=== PATIENT | male | born 1950 | race African-American/Black ===

== ENCOUNTER 2017-02-05 10:06 | Inpatient (IN) ==
[2017-02-05] MEDS ORDERED: SODIUM CHLORIDE 0.9% 1,000 ML IV STA (10:39)
--- NOTE | 2017-02-05 10:42 | EKG Report ---
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
--- NOTE | 2017-02-05 11:08 | CT Report ---
History: Syncope Date: 02/05/2017 Study: CT head without contrast Comparison exam: January 29, [address] sections were obtained through the head without IV contrast. This CT exam was performed using one or more the following dose reduction techniques: Automated exposure control, adjustment of the MA and/or KV according to patient size, or use of iterative reconstruction technique. The ventricles are midline in position without evidence of hydrocephalus. There is no mass or parenchymal hemorrhage. There is no gross CT evidence of acute cortical stroke. There is some ill-defined low density in the periventricular white matter without mass effect compatible with changes of small vessel disease. There is no extra-axial hematoma. There is near complete opacification of the right sphenoid sinus, though this is improved. There is improved aeration of the left sphenoid sinus compared to the previous study. There is no acute abnormality of the bony calvarium. Impression: No acute intracranial process. Persistent but mildly improved sphenoid sinusitis PROCEDURE INTERPRETED AT [facility] DEPARTMENT OF RADIOLOGY Final Report Signed by: Dr. Pamela Ram
--- NOTE | 2017-02-05 11:10 | XRay Report ---
History: Shortness of breath Date: 02/05/2017 Study: Chest x-ray AP portable Comparison exam: January 29, 2017 chest x-ray The cardiac silhouette is upper normal in size. There is no mediastinal mass. The pulmonary vasculature is not engorged. The lungs and pleural spaces are clear. There is minimal thoracic spondylosis. Impression: No acute cardiopulmonary process. No significant interval change PROCEDURE INTERPRETED AT [facility] DEPARTMENT OF RADIOLOGY Final Report Signed by: Dr. Pamela Ram
--- NOTE | 2017-02-05 11:12 | CT Report ---
Exam: CT chest with contrast, PE study Date: 02/05/2017 Comparison: 12/17/2015 Reason: Syncope Technique: Axial images of the chest were obtained after administration of 80 cc of IV Omnipaque 350 intravenous contrast. Coronal reformatted images were also acquired. The study was performed per pulmonary embolism protocol. Total DLP: 399.10 Findings: There is no evidence of pulmonary embolism through the segmental pulmonary arteries.The heart is minimally enlarged with coronary artery calcifications/stents. Limited contrast in the aorta. No chest lymphadenopathy is identified. Degenerative changes are noted. Chronic scarring in the lungs with decreased diffuse parenchymal findings when compared to previous exam. Minimal bullous emphysema. Impression: No evidence of pulmonary embolism. Minimal bullous emphysema with chronic scarring. Coronary artery calcifications/stents. This CT exam was performed using one or more the following dose reduction techniques: Automated exposure control, adjustment of the MA and/or KV according to patient size, or use of iterative reconstruction technique. PROCEDURE INTERPRETED AT [facility] DEPARTMENT OF RADIOLOGY Final Report Signed by: Dr. Janet Landa
[2017-02-05 11:33] LABS: Basophils % 0.2 % (0.0-0.8); Eosinophils # 0.1 10*3/uL (0.0-0.87); Eosinophils % 0.9 % (0.00-10.9); Hematocrit 34.3 VOL% (42.0-52.0); Hemoglobin 11.6 GM/DL (14.0-18.0); Immature Granulocytes % 0.3 %; Immature Granulocytes Absolute 0.03 #; Lymphocytes # 1.5 10*3/uL (1.4-4.0); Lymphocytes % 15.6 % (21.2-54.2); Mean Corpuscular HGB Conc 33.8 GM/DL (32-36); Mean Corpuscular Hemoglobin 32 PG (27-34); Mean Corpuscular Volume 93.2 FL (87-102); Mean Platelet Volume 11.2 FL (9.6-12.0); Monocytes # 0.8 10*3/uL (0.11-0.8); Monocytes % 8.7 % (1.7-12.7); Neutrophils # 7.1 10*3/uL (1.4-7.4); Neutrophils % 74.3 % (38.7-73.9); Platelet Count 125 T/CUMM (130-400); Red Blood Count 3.68 MC/CUMM (3.8-5.5); Red Cell Distribution Width 13.2 % (9.3-17.3); White Blood Count 9.6 T/CUMM (4-12)
[2017-02-05 11:42] LABS: Apearance,Urine CLEAR (Clear); Bilirubin,Urine Negative (Negative); Blood, Urine Negative (Negative); Glucose,Urine (UA) Negative (Negative); Ketones,Urine Negative (Negative); Mucus,Urine Few /LPF (Occasional); Nitrite,Urine Negative (Negative); Protein,Urine Negative; RBC,Urine 1 /HPF (0-4); Squamous Epithelial Cell,Urine Occasional /HPF (0-10); Urine Color Yellow (Yellow); Urine Specific Gravity 1.042 (1.001-1.035); Urine Urobilinogen < 2.0 EU/DL (0.2-1.0); WBC,Urine <1 /HPF (0-6)
[2017-02-05 11:43] LABS: PT Patient Result 10.7 SECS
[2017-02-05 11:46] LABS: Barbiturates Screen,Urine Negative (Negative); Benzodiazepines Screen,Urine Negative (Negative); Cannabinoid Screen,Urine Negative (Negative); Opiate Screen,Urine Positive (Negative); Phencyclidine Screen,Urine Negative (Negative)
[2017-02-05 12:14] LABS: Alanine Aminotransferase 17 U/L (16-61); Albumin 3.1 G/DL (3.4-5.0); Alkaline Phosphatase 76 U/L (45-117); Aspartate Amino Transferase 18 U/L (0-37); Bilirubin,Total < 0.39 MG/DL (0.2-1.0); Blood Urea Nitrogen 22 MG/DL (7-18); Calcium 8.3 MG/DL (8.5-10.1); Glucose 88 MG/DL (74-106); Magnesium 2.4 MG/DL (1.8-2.4); Potassium 3.8 MMOL/L (3.5-5.1); Sodium 136 MMOL/L (136-145); Total Protein 6.7 G/DL (6.4-8.3); Troponin I Only 0.093 NG/ML (0.00-0.045)
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
[2017-02-05] MEDS ORDERED: guaiFENesin/DM ER 600-30 MG TABLET PO PRN (13:39)
[2017-02-05] MEDS ORDERED: ACETAMINOPHEN 325 MG TABLET PO PRN (13:39)
[2017-02-05] MEDS ORDERED: DOCUSATE SODIUM 100 MG CAPSULE PO PRN (13:39)
[2017-02-05] MEDS ORDERED: diphenhydrAMINE CAP 25 MG CAPSULE PO PRN (13:39)
[2017-02-05] MEDS ORDERED: ONDANSETRON 4 MG/2 ML VIAL IV PRN (13:39)
[2017-02-05] MEDS ORDERED: SIMETHICONE CHEW 80 MG TABLET PO PRN (13:43)
[2017-02-05] MEDS ORDERED: predniSONE 5 MG TABLET PO SCH (13:45)
[2017-02-05] MEDS ORDERED: DEXTROSE 50% 25 GM/50 ML VIAL IV PRN (14:45)
[2017-02-05] MEDS ORDERED: GLUCAGON 1 MG VIAL IM PRN (14:45)
--- NOTE | 2017-02-05 14:57 | EKG Report ---
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
[2017-02-05] MEDS ORDERED: predniSONE 10 MG TABLET ONE (17:49)
[2017-02-05] MEDS ORDERED: traMADol 50 MG TABLET ONE (17:50)
[2017-02-05] MEDS ORDERED: MAGNESIUM CHLORIDE 64 MG TABLET PO ONE (17:50)
[2017-02-05] MEDS ORDERED: AMOXICILLIN/CLAV 875 MG TABLET ONE (17:50)
[2017-02-05] MEDS ORDERED: LORATADINE 10 MG TABLET ONE (17:50)
[2017-02-05] MEDS ORDERED: PANTOPRAZOLE 40 MG TABLET PO ONE (17:51)
[2017-02-05] MEDS ORDERED: CLOPIDOGREL 75 MG TABLET ONE (17:51)
[2017-02-05] MEDS ORDERED: ASPIRIN 325 MG TABLET ONE (17:51)
[2017-02-05] MEDS: AMOXICILLIN/CLAV 875 MG TABLET PO SCH (18:03)
[2017-02-05] MEDS: LORATADINE 10 MG TABLET PO SCH (18:03)
[2017-02-05] MEDS: ASPIRIN EC 325 MG TABLET PO SCH (18:03)
[2017-02-05] MEDS: PANTOPRAZOLE 40 MG TABLET PO SCH (18:04)
[2017-02-05] MEDS: traMADol 50 MG TABLET PO SCH ×2 (18:04→20:33)
[2017-02-05] MEDS: MAGNESIUM CHLORIDE 64 MG TABLET PO SCH (18:04)
[2017-02-05] MEDS: CLOPIDOGREL 75 MG TABLET PO SCH (18:04)
[2017-02-05] MEDS ORDERED: predniSONE 5 MG TABLET PO ONE (18:30)
[2017-02-05] MEDS: SERTRALINE 50 MG TABLET PO SCH (19:46)
[2017-02-05] MEDS: DULoxetine 30 MG CAPSULE PO SCH (19:46)
[2017-02-05] MEDS: INSULIN REGULAR 100 UNIT/ML SUBCUT SCH (19:46)
[2017-02-05] MEDS: ROSUVASTATIN 10 MG TABLET PO SCH (20:33)
[2017-02-05] MEDS ORDERED: traZODone 50 MG TABLET PO SCH (21:00)
[2017-02-06] MEDS: AMOXICILLIN/CLAV 875 MG TABLET PO SCH ×3 (05:47→17:20)
[2017-02-06] MEDS: INSULIN REGULAR 100 UNIT/ML SUBCUT SCH ×2 (08:21→17:21)
--- NOTE | 2017-02-06 08:53 | EKG Report ---
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
[2017-02-06] MEDS ORDERED: POTASSIUM CHLORIDE RIDER 10 MEQ in PREMIX 1 EACH IV PRN ×2 (15:27→16:08)
[2017-02-06] MEDS ORDERED: MAGNESIUM SULF RIDER 2 GM in PREMIX 1 EACH IV PRN ×2 (15:27→16:08)
[2017-02-06] MEDS: MAGNESIUM CHLORIDE 64 MG TABLET PO SCH (15:33)
[2017-02-06] MEDS: CLOPIDOGREL 75 MG TABLET PO SCH (15:33)
[2017-02-06] MEDS: SERTRALINE 50 MG TABLET PO SCH (15:34)
[2017-02-06] MEDS: LORATADINE 10 MG TABLET PO SCH (15:34)
[2017-02-06] MEDS: PANTOPRAZOLE 40 MG TABLET PO SCH (15:34)
[2017-02-06] MEDS: ASPIRIN EC 325 MG TABLET PO SCH (15:34)
[2017-02-06] MEDS: DULoxetine 30 MG CAPSULE PO SCH (15:35)
[2017-02-06] MEDS: traMADol 50 MG TABLET PO SCH ×3 (15:35→21:47)
[2017-02-06] MEDS: SODIUM CHLORIDE 0.45% 1,000 ML IV SCH (15:36)
[2017-02-06] MEDS ORDERED: DIAZEPAM 5 MG TABLET PO ONE (16:08)
--- NOTE | 2017-02-06 16:08 | History and Physical Update ---
Sedation H&P Update - History and Physical H&P was reviewed, the patient examined and there: are no changes in the patients condition since last H&P was completed. - Dictation Physical: refer to scanned H&P - Physical Exam Mental Status: alert and oriented Heart: regular rate and rhythm Lung: clear to auscultation Abdomen: within normal limits Vitals: within normal limits - Sedation Plan for Sedation: moderate Patient Consent: Procedure disscussed with patient and patinet has consented., Risks and benefits were discussed with patient,including infection,, bleeding, injury to surrounding structures, seizure, temporary nerve, Patient understands and accepts potential risks/benefits and agrees to, proceed. ASA Class: II Airway Assessment: Class II: Soft palate, uvula, fauces visible
--- NOTE | 2017-02-06 16:50 | Hospitalist Progress Note ---
Assessment and Plan (1) Syncope Status: Acute Current Visit: No (2) Diabetes mellitus Status: Chronic Current Visit: No (3) Hypertension Status: Chronic Current Visit: No (4) Coronary artery disease Status: Chronic Current Visit: Yes Hospitalist: Subjective Interval history: No acute events overnight. Denies chest pain. Possible cardiac cath today. Cardiology assisting. Exam - Constitutional Vitals: Period Temp Pulse Resp BP Sys/Ness Pulse Ox Last 24 Hr 97.1 F-98.2 F 55-75 16-20 111-126/66-81 95-98 General appearance: over weight - Head Head exam: Present: normocephalic, atraumatic - Eye Eye exam: Present: EOMI Pupils: Present: LATISHA - ENT ENT exam: Present: normal exam - Neck Neck exam: Present: normal inspection - Respiratory Respiratory exam: Present: clear to auscultation bilaterally. Absent: rhonchi, wheezes - Cardiovascular Cardiovascular exam: Present: regular rate and rhythm - GI/Abdominal GI/Abdominal exam: Present: normal bowel sounds, soft. Absent: tenderness, rebound - Extremities Exam Extremities exam: Present: normal inspection - Back Exam Back exam: Present: normal inspection - Neurological Exam Neurological exam: Present: alert, oriented X3 - Psychiatric Psychiatric exam: Present: normal affect, normal mood - Skin Skin exam: Present: warm, intact Results - Labs CBC & BMP: 02/05/17 11:23 02/05/17 11:23 Quality Measures - VTE Contraindication to Pharmacological VTE Prophylaxis: Already on Theraputic Agent , No Prophylaxis Needed
[2017-02-06 17:23] LABS: PT Patient Result 11.1 SECS
--- NOTE | 2017-02-06 18:04 | ECHO Report ---
Liu Desai Exam Date: 02/06/2017 16:16 Referring Physician: Technologist: Rossana Farley RDCS Age: 66 Ht (in): 71 Wt (lb): 172 Gender: M Exam Location: [facility] Echo Indications: Syncope and collapse, Chest pain, unspecified, Essential (primary) hypertension, CAD BP: 114 / 77 HR: 75 Rhythm: Sinus Technical Quality: Fair IMPRESSIONS Normal left ventricular size, systolic function and wall thickness, with no regional wall motion abnormalities. EF 55 %. Grade I/IV diastolic dysfunction (abnormal relaxation filling pattern), normal to mildly elevated filling pressures. Normal right ventricular size and systolic function. The right atrium is mildly enlarged. The left atrium is mildly enlarged. Mildly thickened mitral valve. No mitral valve regurgitation. Aortic valve sclerosis. Trace aortic valve regurgitation. Mild tricuspid valve regurgitation. PAP40 mmHG. Pulmonic valve not well visualized. No pericardial effusion. Normal aorta. MEASUREMENTS (Male / Female) Normal Values 2D ECHO LV Diastolic Diameter PLAX 4.2 cm 4.2 - 5.9 / 3.9 - 5.3 cm LV Systolic Diameter PLAX 2.4 cm LV Fractional Shortening PLAX 43.0 % IVS Diastolic Thickness 0.9 cm 0.6 - 1.0 / 0.6 - 0.9 cm LVPW Diastolic Thickness 0.9 cm 0.6 - 1.0 / 0.6 - 0.9 cm RV Internal Dim ED PLAX 3.4 cm Aortic Root Diameter 3.1 cm LA Systolic Diameter LX 3.9 cm 3.0 - 4.0 / 2.7 - 3.8 cm DOPPLER TR Peak Velocity 265.0 cm/s TR Peak Gradient 28.1 mmHg FINDINGS Left Ventricle Normal left ventricular size, systolic function and wall thickness, with no regional wall motion abnormalities. EF 55 %. Grade I/IV diastolic dysfunction (abnormal relaxation filling pattern), normal to mildly elevated filling pressures. Right Ventricle Normal right ventricular size and systolic function. Right Atrium The right atrium is mildly enlarged. Left Atrium The left atrium is mildly enlarged. Mitral Valve Mildly thickened mitral valve. No mitral valve regurgitation. Aortic Valve Aortic valve sclerosis. Trace aortic valve regurgitation. Tricuspid Valve Morphologically normal tricuspid valve. Mild tricuspid valve regurgitation. PAP40 mmHG. Pulmonic Valve Pulmonic valve not well visualized. Pericardium No pericardial effusion. Aorta Normal aorta. Suman Plavac (Electronically Signed) Final Date: 06 Feb 2017 18:03
[2017-02-06] MEDS: ROSUVASTATIN 10 MG TABLET PO SCH (21:48)
[2017-02-06] MEDS: traZODone 50 MG TABLET PO SCH (21:48)
[2017-02-07] MEDS ORDERED: DIAZEPAM 5 MG TABLET PO ONE ×2 (06:00→09:00)
[2017-02-07 06:23] LABS: Basophils % 0.3 % (0.0-0.8); Eosinophils # 0.2 10*3/uL (0.0-0.87); Eosinophils % 3.6 % (0.00-10.9); Hematocrit 34.9 VOL% (42.0-52.0); Hemoglobin 11.9 GM/DL (14.0-18.0); Immature Granulocytes % 0.3 %; Immature Granulocytes Absolute 0.02 #; Lymphocytes # 2.1 10*3/uL (1.4-4.0); Mean Corpuscular HGB Conc 34.1 GM/DL (32-36); Mean Corpuscular Hemoglobin 32 PG (27-34); Mean Corpuscular Volume 92.6 FL (87-102); Monocytes # 0.5 10*3/uL (0.11-0.8); Monocytes % 8.5 % (1.7-12.7); Neutrophils # 3.2 10*3/uL (1.4-7.4); Neutrophils % 53.3 % (38.7-73.9); Platelet Count 229 T/CUMM (130-400); Red Blood Count 3.77 MC/CUMM (3.8-5.5); Red Cell Distribution Width 13.2 % (9.3-17.3); White Blood Count 6.1 T/CUMM (4-12)
[2017-02-07] MEDS: AMOXICILLIN/CLAV 875 MG TABLET PO SCH ×2 (06:29→18:56)
[2017-02-07 06:53] LABS: Calcium 8.6 MG/DL (8.5-10.1); Magnesium 2.4 MG/DL (1.8-2.4); Osmolality,Calculated 281.3 MOS/KG (273-304); Potassium 4.7 MMOL/L (3.5-5.1); Risk Ratio 3.15; VLDL CHOLESTEROL 21.2 MG/DL
[2017-02-07] MEDS: INSULIN REGULAR 100 UNIT/ML SUBCUT SCH ×2 (07:40→17:12)
[2017-02-07] MEDS ORDERED: LIDOCAINE 1% 20 ML VIAL ONE ×2 (07:55→08:45)
[2017-02-07] MEDS ORDERED: HEPARIN/NACL 0.9% 2 UNITS/ML 500 ML IV ONE ×2 (07:55→10:13)
[2017-02-07] MEDS: SERTRALINE 50 MG TABLET PO SCH (08:02)
[2017-02-07] MEDS: CLOPIDOGREL 75 MG TABLET PO SCH (08:02)
[2017-02-07] MEDS: DULoxetine 30 MG CAPSULE PO SCH (08:02)
[2017-02-07] MEDS: ASPIRIN EC 325 MG TABLET PO SCH (08:02)
[2017-02-07] MEDS: LORATADINE 10 MG TABLET PO SCH (08:02)
[2017-02-07] MEDS: traMADol 50 MG TABLET PO SCH ×3 (08:02→21:36)
[2017-02-07] MEDS: PANTOPRAZOLE 40 MG TABLET PO SCH (08:02)
[2017-02-07] MEDS: MAGNESIUM CHLORIDE 64 MG TABLET PO SCH (08:02)
[2017-02-07] MEDS: diphenhydrAMINE CAP 25 MG CAPSULE PO ONE ×2 (08:04→08:34)
[2017-02-07] MEDS: SODIUM CHLORIDE 0.9% 1,000 ML IV SCH ×2 (08:05→15:34)
[2017-02-07] MEDS ORDERED: HEPARIN/NACL 0.9% 2 UNITS/ML 1,000 ML IV ONE (08:45)
--- NOTE | 2017-02-07 08:45 | Hospitalist Progress Note ---
<ZeferinoSarath - Last Filed: 02/07/17 08:45> Assessment and Plan (1) Syncope Status: Acute Assessment and plan: No further episodes noted; awaiting heart cath this AM. Current Visit: Yes (2) Coronary artery disease Status: Chronic Assessment and plan: Heart cath this AM. Current Visit: Yes (3) Dyslipidemia Status: Chronic Current Visit: Yes (4) Chest pain Status: Acute Assessment and plan: No further episodes noted; awaiting heart cath this AM. Current Visit: No Hospitalist: Subjective Interval history: Patient seen and examined; no significant overnight events. Awaiting heart cath this morning. Exam - Constitutional Vitals: Period Temp Pulse Resp BP Sys/Ness Pulse Ox Last 24 Hr 97.4 F-98.5 F 55-75 14-18 112-134/66-77 93-96 General appearance: normal weight, no acute distress - Head Head exam: Present: normal inspection, normocephalic, atraumatic - Eye Eye exam: Present: EOMI, nystagmus. Absent: conjunctival injection Pupils: Present: LATISHA, normal accommodation - ENT ENT exam: Present: normal external ear exam, normal oropharynx - Neck Neck exam: Present: normal inspection. Absent: lymphadenopathy, meningismus, thyromegaly - Respiratory Respiratory exam: Present: clear to auscultation bilaterally. Absent: rales, rhonchi, stridor, wheezes - Cardiovascular Cardiovascular exam: Present: regular rate and rhythm. Absent: carotid bruit, diastolic murmur, gallop, JVD, rubs, systolic murmur - GI/Abdominal GI/Abdominal exam: Present: normal bowel sounds, soft. Absent: tenderness, rebound - Extremities Exam Extremities exam: Present: normal inspection, normal capillary refill, full ROM. Absent: edema - Back Exam Back exam: Present: normal inspection - Neurological Exam Neurological exam: Present: alert, oriented X3, CN II-XII intact - Psychiatric Psychiatric exam: Present: normal affect, normal mood - Skin Skin exam: Present: normal color, warm, dry Results - Labs CBC & BMP: 02/07/17 05:55 02/07/17 05:55 Lab Results: I have reviewed the past 24 hour labs Quality Measures - VTE Contraindication to Pharmacological VTE Prophylaxis: Already on Theraputic Agent , No Prophylaxis Needed <Catia Alberto - Last Filed: 02/07/17 15:39> Assessment and Plan (1) Syncope Status: Acute Current Visit: No (2) Diabetes mellitus Status: Chronic Current Visit: No (3) Hypertension Status: Chronic Current Visit: No (4) Coronary artery disease Status: Chronic Current Visit: Yes Hospitalist: Subjective Interval history: Patient seen and examined independently of AJIT Mcgarry, agree with assessment and plan as documented. Heart cath today with 80% occlusion of posterior LV branch, successful drug eluding stent placed. Hopeful for discharge soon. Exam - Constitutional Vitals: Period Temp Pulse Resp BP Sys/Ness Pulse Ox Last 24 Hr 97.4 F-98.5 F 58-75 12-18 110-147/66-81 93-99 Results - Labs CBC & BMP: 02/07/17 05:55 02/07/17 05:55
[2017-02-07] MEDS ORDERED: diphenhydrAMINE CAP 25 MG CAPSULE PO ONE (09:00)
[2017-02-07] MEDS ORDERED: HYDROmorphone 2 MG/1 ML VIAL ONE (09:26)
[2017-02-07] MEDS ORDERED: MIDAZOLAM 2 MG/2 ML VIAL ONE (09:26)
[2017-02-07] MEDS ORDERED: BIVALIRUDIN 250 MG VIAL IV ONE (09:42)
[2017-02-07] MEDS: SODIUM CHLORIDE 0.45% 1,000 ML IV SCH ×2 (10:06→17:50)
[2017-02-07] MEDS ORDERED: CLOPIDOGREL 75 MG TABLET ONE (10:40)
--- NOTE | 2017-02-07 11:00 | Cardiac Catheterization ---
Date of Procedure:: 02/07/17 Pre-op Diagnosis: CAD chest pain syncope Post-op diagnosis: same Procedure: Cardiac catheterization procedure note #1 left heart catheterization #2 selective coronary angiography #3 left ventriculography #4 successful posterior LV branch stent Omnipaque was used for procedure Description of procedure Following sterile preparation and draping of the right groin, local anesthesia was achieved by infiltration with 1% Xylocaine. Using a Cook needle the right femoral artery was cannulated and a #6 sheath was inserted. A 6 Surinamese pigtail catheter was introduced and advanced retrograde across aortic valve into the left ventricle and the end-diastolic pressure was recorded. Left ventriculography was performed the BLACK projection using 24 cc of contrast. A pullback was made across aortic valve. The pigtail catheter change for a 6 [place]inamese right Dax catheter and the single right coronary was cannulated and angiography was performed in several projections. The diagonal stent site and the circumflex angioplasty site remained patent. There was a new stenosis in the posterior LV branch. The diagnostic catheter change for a 6 [place]inamese left Dax guiding catheter with sideholes and the short sheath was exchanged for a long sheath because the first catheter kinked in a tortuous aortoiliac system. A pro-water flex wire was introduced and advanced across the lesion and placed into the distal right coronary. The patient was both Angiomax and placed on infusion per protocol. Direct stenting was performed with a 3.0 x 12 mm Alpine Zions drug-coated stent. The maximum inflation pressure was 12 jailene for 30 seconds, creating a 3.10 mm lumen. The balloon was then withdrawn leaving only the guidewire across the lesion. Repeat angiography demonstrated a widely patent vessel with mild residual narrowing, no dissection and brisk runoff. The guiding catheter and sheath were then removed and the femoral arteriotomy site was sealed percutaneously with a vascade closure device with prompt cessation of bleeding and prompt return of normal for pulses. No complications ensued. The patient was transferred back to telemetry in stable condition Hemodynamic data Aortic pressure 118/72 mean of 90 Left ventricle 118/15 Selective coronary angiography The patient has a single right coronary artery. The left main arises from the proximal right coronary and is widely patent. The LAD is patent proximally and is occluded in the distal one third of the vessel. The diagonal stent site is widely patent. The circumflex is small and patent. The previous circumflex antibody site is patent. The right coronary artery has an 80% stenosis in the posterior LV branch Left ventriculography Ejection fraction 60%. No wall motion abnormalities. No mitral regurgitation. Conclusions #1 LVEDP 15 #2 ejection fraction 60% with no wall motion abnormalities #3 no mitral regurgitation #4 no aortic valve gradient #5 single right coronary artery #6 left main trunk-arises from the proximal right coronary artery, widely patent #7 LAD-patent proximal mid vessel and occluded distal one third #8 diagonal-widely patent proximal stent site #9 circumflex system-mild irregularities only. Previous angioplasty site remains patent #10 Right coronary artery-80% posterior LV branch stenosis #11 successful posterior LV branch stent with a 3.0 x 12 mm Alpine Zions drug- coated stent, maximum inflation pressure 12 jailene for 30 seconds, grading a 3.10 mm lumen. Disposition The patient status post small non-Q-wave MD with diagonal stent and circumflex angioplasty February 2013. The diagonal stent site and circumflex angioplasty site remains patent. The LAD is occluded in the distal one third of the vessel which is a chronic finding. The new finding is an 80% stenosis the posterior LV branch which was stented with a 3.0 x 12 mm Alpine Zions drug-coated stent, postdilated 3.10 mm lumen. Excellent angiographic result obtained. He remain on aspirin Plavix and statin therapy and continue normal saline hydration. A BMP CPK and troponin rechecked in the morning. Implants: Successful stent posterior LV branch 3.0 x 12 mm Alpine Zions drug-coated stent , postdilated 3.10 mm lumen. Good result obtained. Anesthesia: moderate conscious sedation Surgeon / Physician: Farzad Lerma Estimated blood loss: minimal Specimens: none sent Condition: stable Disposition: floor - Medications / Follow-up
[2017-02-07] MEDS ORDERED: ZALEPLON 5 MG CAPSULE PO PRN (11:01)
--- NOTE | 2017-02-07 12:30 | EKG Report ---
Stationary ECG Study [facility] Test Date: 02/07/2017 12:28:57 PM Pat Name: RATNA ORNELAS Department: Room: 290 Gender: M Box Tender: : 1950 Requested by: Farzad Lerma Order Number: [id number] Reading MD: TRU WYLIE Intervals [place] Rate: 63 P: 65 OR: 175 QRS: 72 QRSD: 84 T: 72 QT: 414 QTc: 422 Interpretive Statements SINUS RHYTHM EARLY REPOLARIZATION Electronically Signed On 02-07-17 18:44:38 CDT by TRU WYLIE [email or web address]
[2017-02-07] MEDS: traZODone 50 MG TABLET PO SCH (21:37)
[2017-02-07] MEDS: ROSUVASTATIN 10 MG TABLET PO SCH (21:37)
[2017-02-08 05:32] LABS: Basophils % 0.2 % (0.0-0.8); Eosinophils # 0.2 10*3/uL (0.0-0.87); Eosinophils % 3.2 % (0.00-10.9); Hematocrit 33.9 VOL% (42.0-52.0); Hemoglobin 11.2 GM/DL (14.0-18.0); Immature Granulocytes % 0.2 %; Immature Granulocytes Absolute 0.01 #; Lymphocytes # 1.6 10*3/uL (1.4-4.0); Lymphocytes % 25.3 % (21.2-54.2); Mean Corpuscular Hemoglobin 31 PG (27-34); Mean Corpuscular Volume 92.6 FL (87-102); Mean Platelet Volume 9.8 FL (9.6-12.0); Monocytes # 0.5 10*3/uL (0.11-0.8); Monocytes % 7.6 % (1.7-12.7); Neutrophils # 4.1 10*3/uL (1.4-7.4); Neutrophils % 63.5 % (38.7-73.9); Platelet Count 225 T/CUMM (130-400); Red Blood Count 3.66 MC/CUMM (3.8-5.5); Red Cell Distribution Width 13.1 % (9.3-17.3); White Blood Count 6.5 T/CUMM (4-12)
[2017-02-08] MEDS: AMOXICILLIN/CLAV 875 MG TABLET PO SCH ×2 (06:01→17:42)
[2017-02-08 06:04] LABS: Calcium 8.4 MG/DL (8.5-10.1); Magnesium 2.4 MG/DL (1.8-2.4); Osmolality,Calculated 278.4 MOS/KG (273-304); Potassium 4.5 MMOL/L (3.5-5.1)
[2017-02-08 06:22] LABS: Blood Urea Nitrogen 16 MG/DL (7-18); Calcium 8.4 MG/DL (8.5-10.1); Glucose 88 MG/DL (74-106); Osmolality,Calculated 276.5 MOS/KG (273-304); Potassium 4.6 MMOL/L (3.5-5.1); Sodium 139 MMOL/L (136-145)
[2017-02-08] MEDS: INSULIN REGULAR 100 UNIT/ML SUBCUT SCH ×2 (08:05→16:37)
--- NOTE | 2017-02-08 08:47 | EKG Report ---
Stationary ECG Study [facility] Test Date: 02/08/2017 7:36:27 AM Pat Name: RATNA ORNELAS Department: Room: 290 Gender: M Cs Associate: AVTAR : 1950 Requested by: Farzad Lerma Order Number: [id number] Reading MD: CARRIE DOUGLAS Intervals [place] Rate: 69 P: 63 NH: 174 QRS: 32 QRSD: 92 T: 62 QT: 371 QTc: 389 Interpretive Statements SINUS RHYTHM POSSIBLE RIGHT VENTRICULAR CONDUCTION DELAY MINIMAL VOLTAGE CRITERIA FOR LVH, CONSIDER NORMAL VARIANT Electronically Signed On 02-08-17 11:40:08 CDT by CARRIE DOUGLAS [id number]
[2017-02-08] MEDS: PANTOPRAZOLE 40 MG TABLET PO SCH (08:51)
[2017-02-08] MEDS: ASPIRIN EC 325 MG TABLET PO SCH (08:51)
[2017-02-08] MEDS: CLOPIDOGREL 75 MG TABLET PO SCH (08:52)
[2017-02-08] MEDS: traMADol 50 MG TABLET PO SCH ×3 (08:52→20:48)
[2017-02-08] MEDS: LORATADINE 10 MG TABLET PO SCH (08:52)
[2017-02-08] MEDS: MAGNESIUM CHLORIDE 64 MG TABLET PO SCH (08:52)
[2017-02-08] MEDS: DULoxetine 30 MG CAPSULE PO SCH (08:53)
[2017-02-08] MEDS: SERTRALINE 50 MG TABLET PO SCH (08:53)
--- NOTE | 2017-02-08 08:54 | Hospitalist Progress Note ---
<Sarath Mcgarry - Last Filed: 02/08/17 08:54> Assessment and Plan (1) Syncope Status: Acute Assessment and plan: No further episodes noted; awaiting heart cath this AM. 02/08-Cath on yesterday with stent placement; reports intermittent dizziness and weakness; will continue to monitor. Current Visit: Yes (2) Coronary artery disease Status: Chronic Assessment and plan: Heart cath this AM. 02/08-Heart cath on yesterday; stent placed to LV branch. Awaiting further direction from Cardiology. Current Visit: Yes (3) Dyslipidemia Status: Chronic Current Visit: Yes (4) Chest pain Status: Acute Assessment and plan: No further episodes noted; awaiting heart cath this AM. 02/08-No further episodes noted Current Visit: No Hospitalist: Subjective Interval history: Patient seen and examined. Heart cath on yesterday; stent placed to LV branch. Reports feelings of dizziness and weakness this morning. Exam - Constitutional Vitals: Period Temp Pulse Resp BP Sys/Ness Pulse Ox Last 24 Hr 97.6 F-98.2 F 57-70 12-18 104-147/51-83 91-100 General appearance: normal weight, no acute distress - Head Head exam: Present: normal inspection, normocephalic, atraumatic - Eye Eye exam: Present: EOMI. Absent: conjunctival injection Pupils: Present: LATISHA, normal accommodation - ENT ENT exam: Present: normal exam, normal external ear exam, normal oropharynx - Neck Neck exam: Present: normal inspection. Absent: lymphadenopathy, meningismus, tenderness, thyromegaly - Respiratory Respiratory exam: Present: clear to auscultation bilaterally, wheezes. Absent: rales, rhonchi, stridor - Cardiovascular Cardiovascular exam: Present: regular rate and rhythm. Absent: carotid bruit, diastolic murmur, gallop, JVD, rubs, systolic murmur - GI/Abdominal GI/Abdominal exam: Present: normal bowel sounds, soft. Absent: distended, firm - Extremities Exam Extremities exam: Present: normal inspection, normal capillary refill, full ROM. Absent: edema - Back Exam Back exam: Present: normal inspection - Neurological Exam Neurological exam: Present: alert, oriented X3, CN II-XII intact - Psychiatric Psychiatric exam: Present: normal affect, normal mood, depressed - Skin Skin exam: Present: normal color, warm, dry Results - Labs CBC & BMP: 02/08/17 05:10 02/08/17 05:10 Lab Results: I have reviewed the past 24 hour labs Quality Measures - VTE Contraindication to Mechanical VTE Prophylaxis: Trauma to Legs Specialty Discharge - Follow Up or Referrals <RemyRiojohny - Last Filed: 02/08/17 15:47> Assessment and Plan (1) Syncope Status: Acute Current Visit: No (2) Diabetes mellitus Status: Chronic Current Visit: No (3) Hypertension Status: Chronic Current Visit: No (4) Coronary artery disease Status: Chronic Current Visit: Yes Hospitalist: Subjective Interval history: Patient seen and examined independently of AJIT Mcgarry, agree with assessment and plan as documented. Complaining of dizziness this am, reports a little better this afternoon. Discharge in am. Exam - Constitutional Vitals: Period Temp Pulse Resp BP Sys/Ness Pulse Ox Last 24 Hr 97.6 F-98.6 F 57-73 16-18 104-135/51-83 91-100 Results - Labs CBC & BMP: 02/08/17 05:10 02/08/17 05:10
--- NOTE | 2017-02-08 09:13 | Cardiology Progress Note ---
Cardiology - PN: Subj Interval history: Cardiology note Status post posterior LV branch stent yesterday. Diagonal stent site remains widely patent and circumflex antibody site patent. Ejection fraction 60%. Telemetry has been benign. Blood pressure 118/76 in the left arm by me Regular rhythm. Clear lungs. Right groin soft and dry. No bruit or hematoma. Distal pulses 2+. Lab data stable Sodium 139 potassium 4.6 chloride 104 CO2 28 BUN 16 creatinine 1.0 Plan Routine groin precautions discussed. Continue aspirin and Plavix 75 mg daily. Continue Crestor 5 mg daily. Home okay with me. Office visit Dr. Moraes 1 week with EKG Exam (Progress Note) - Constitutional Vitals: Period Temp Pulse Resp BP Sys/Ness Pulse Ox Last 24 Hr 97.6 F-98.2 F 57-71 12-18 104-147/51-83 91-100 Result/EKG - Labs CBC & BMP: 02/08/17 05:10 02/08/17 05:10 Labs: Laboratory Results - last 24 hr 02/07/17 02/07/17 02/07/17 07:38 11:32 16:10 WBC RBC Hgb Hct MCV MCH MCHC RDW Plt Count MPV Neut % (Auto) Lymph % (Auto) [place] % (Auto) Eos % (Auto) Baso % (Auto) Neut # (Auto) Lymph # (Auto) [place] # (Auto) Eos # (Auto) Baso # (Auto) Immature Gran % Nucleated RBC % Immature Gran # Nucleated RBCs # Sodium Potassium Chloride Carbon Dioxide Anion Gap BUN Creatinine GFR Calculation BUN/Creatinine Ratio Glucose POC Glucose 87 80 167 H Calculated Osmolality Calcium Magnesium Total Creatine Kinase CK-MB (CK-2) Troponin I 02/07/17 02/08/17 02/08/17 20:12 05:10 05:10 WBC 6.5 RBC 3.66 L Hgb 11.2 L Hct 33.9 L MCV 92.6 MCH 31 MCHC 33.0 RDW 13.1 Plt Count 225 MPV 9.8 Neut % (Auto) 63.5 Lymph % (Auto) 25.3 [place] % (Auto) 7.6 Eos % (Auto) 3.2 Baso % (Auto) 0.2 Neut # (Auto) 4.1 Lymph # (Auto) 1.6 [place] # (Auto) 0.5 Eos # (Auto) 0.2 Baso # (Auto) 0.0 Immature Gran % 0.2 Nucleated RBC % 0.0 Immature Gran # 0.01 Nucleated RBCs # 0.00 Sodium 140 Potassium 4.5 Chloride 105 Carbon Dioxide 28 Anion Gap 11.5 BUN 16 Creatinine 1.00 GFR Calculation 104 BUN/Creatinine Ratio 16.00 Glucose 89 POC Glucose 116 H Calculated Osmolality 278.4 Calcium 8.4 L Magnesium 2.4 Total Creatine Kinase CK-MB (CK-2) Troponin I 02/08/17 02/08/17 05:10 07:41 WBC RBC Hgb Hct MCV MCH MCHC RDW Plt Count MPV Neut % (Auto) Lymph % (Auto) [place] % (Auto) Eos % (Auto) Baso % (Auto) Neut # (Auto) Lymph # (Auto) [place] # (Auto) Eos # (Auto) Baso # (Auto) Immature Gran % Nucleated RBC % Immature Gran # Nucleated RBCs # Sodium 139 Potassium 4.6 Chloride 104 Carbon Dioxide 28 Anion Gap 11.6 BUN 16 Creatinine 1.00 GFR Calculation 104 BUN/Creatinine Ratio 16.00 Glucose 88 POC Glucose 94 Calculated Osmolality 276.5 Calcium 8.4 L Magnesium Total Creatine Kinase 98 CK-MB (CK-2) 2.5 Troponin I 1.630 H D Quality Measures - VTE Contraindication to Mechanical VTE Prophylaxis: Trauma to Legs Specialty Discharge - Follow Up or Referrals
[2017-02-08] MEDS: ROSUVASTATIN 10 MG TABLET PO SCH (20:48)
[2017-02-08] MEDS: traZODone 50 MG TABLET PO SCH (20:49)
[2017-02-09 04:48] LABS: Basophils % 0.2 % (0.0-0.8); Eosinophils # 0.3 10*3/uL (0.0-0.87); Eosinophils % 4.4 % (0.00-10.9); Hematocrit 33.9 VOL% (42.0-52.0); Hemoglobin 11.2 GM/DL (14.0-18.0); Immature Granulocytes % 0.2 %; Immature Granulocytes Absolute 0.01 #; Lymphocytes # 1.6 10*3/uL (1.4-4.0); Lymphocytes % 29.1 % (21.2-54.2); Mean Corpuscular Hemoglobin 30 PG (27-34); Mean Corpuscular Volume 91.4 FL (87-102); Mean Platelet Volume 9.2 FL (9.6-12.0); Monocytes # 0.6 10*3/uL (0.11-0.8); Monocytes % 9.8 % (1.7-12.7); Neutrophils # 3.2 10*3/uL (1.4-7.4); Neutrophils % 56.3 % (38.7-73.9); Platelet Count 245 T/CUMM (130-400); Red Blood Count 3.71 MC/CUMM (3.8-5.5); Red Cell Distribution Width 13.2 % (9.3-17.3); White Blood Count 5.6 T/CUMM (4-12)
[2017-02-09 05:32] LABS: Calcium 8.8 MG/DL (8.5-10.1); Magnesium 2.3 MG/DL (1.8-2.4); Osmolality,Calculated 280.3 MOS/KG (273-304); Potassium 4.4 MMOL/L (3.5-5.1)
[2017-02-09] MEDS: AMOXICILLIN/CLAV 875 MG TABLET PO SCH (06:12)
--- NOTE | 2017-02-09 07:13 | Discharge Summary ---
<Sarath Mcgarry - Last Filed: 02/09/17 07:44> Hospital Course - Hospital Course Hospital Course: This is a very pleasant 66 year old male that presented to the ED at [facility] for evaluation of syncope. The patient has a medical history significant of hypertension, coronary artery disease,and diabetes mellitus. He has a surgical history of cardiac catheterization with stent placement in 2012. On the morning of presentation, the patient reported that he was working in his garden when he suddenly got tired and weak. He proceeded to sit down in a chair, where he proceeded to pass out. He was found by his sister, who called EMS. He was then transported to the ED for further evaluation. The patient reported that he was seen for an episode similar in nature, he was evaluated by Dr. Moraes and was scheduled on 02/08 for an outpatient stress test by Dr. Moraes. Dr. Moraes was consulted to see the patient during the clinical encounter. The patient was evaluated by Dr. Moraes. On 02/07, the patient underwent cardiac catheterization with stent placement to the LV branch. His condition is table. He has not experienced no significant overnight events. Today, we feel that he is indeed appropriate for discharge to follow-up with his PCP and Dr. Moraes as directed. Diagnosis - Discharge Diagnosis (1) Syncope Status: Acute (2) Coronary artery disease Status: Chronic (3) Dyslipidemia Status: Chronic (4) Chest pain Status: Acute Specialty Discharge - Follow Up or Referrals Follow up with: Damon Moraes MD [Physician] - 1 Week Discharge Plan - Discharge Medications Continue Hydrocodone/Acetaminophen [Hydrocodon-Acetaminophn 10-325] 1 each PO TID PRN PRN Reason: Pain Clopidogrel [Plavix] 75 mg PO DAILY Carvedilol [Coreg] 3.125 mg PO BID Duloxetine HCl [Duloxetine] 30 mg PO DAILY Omeprazole 20 mg PO DAILY Metformin HCl 500 mg PO BID W/MEALS Magnesium Chloride [Slow Mag] 64 mg PO DAILY tablet Sertraline [Zoloft] 50 mg PO DAILY tablet Simethicone Chew Tab [Mylicon Chew Tab] 80 mg PO QID PRN #0 tablet PRN Reason: Gas Rosuvastatin [Crestor] 5 mg PO BEDTIME Loratadine Tab [Claritin Tab] 10 mg PO DAILY Aspirin EC Tab 325 mg PO DAILY tablet Tramadol HCl [Ultram] 50 mg PO TID Trazodone HCl 100 mg PO BEDTIME Discontinued Amoxicillin/Clav Tab [Augmentin Tab] 875 mg PO Q12H #20 tablet - Follow Up or Referral - Forms/Instructions Instructions: Coronary Artery Disease (GEN), Left Heart Catheterization (DC), Heart Healthy Diet (GEN), Coronary Intravascular Stent Placement, 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 Operator (GEN) Exam - Constitutional Vitals: Period Temp Pulse Resp BP Sys/Ness Pulse Ox Last 24 Hr 96.3 F-98.6 F 62-81 16-20 86-140/56-79 93-98 Discharge Results Labs on day of discharge: Labs from last 24 hours 02/09/17 02/09/17 02/09/17 07:32 04:38 04:38 WBC 5.6 RBC 3.71 L Hgb 11.2 L Hct 33.9 L MCV 91.4 MCH 30 MCHC 33.0 RDW 13.2 Plt Count 245 MPV 9.2 L Neut % (Auto) 56.3 Lymph % (Auto) 29.1 [place] % (Auto) 9.8 Eos % (Auto) 4.4 Baso % (Auto) 0.2 Neut # (Auto) 3.2 Lymph # (Auto) 1.6 [place] # (Auto) 0.6 Eos # (Auto) 0.3 Baso # (Auto) 0.0 Immature Gran % 0.2 Nucleated RBC % 0.0 Immature Gran # 0.01 Nucleated RBCs # 0.00 Sodium 141 Potassium 4.4 Chloride 105 Carbon Dioxide 28 Anion Gap 12.4 BUN 14 Creatinine 1.00 GFR Calculation 104 BUN/Creatinine Ratio 14.00 Glucose 89 POC Glucose 84 Calculated Osmolality 280.3 Calcium 8.8 Magnesium 2.3 02/08/17 02/08/17 02/08/17 20:48 16:33 11:36 WBC RBC Hgb Hct MCV MCH MCHC RDW Plt Count MPV Neut % (Auto) Lymph % (Auto) [place] % (Auto) Eos % (Auto) Baso % (Auto) Neut # (Auto) Lymph # (Auto) [place] # (Auto) Eos # (Auto) Baso # (Auto) Immature Gran % Nucleated RBC % Immature Gran # Nucleated RBCs # Sodium Potassium Chloride Carbon Dioxide Anion Gap BUN Creatinine GFR Calculation BUN/Creatinine Ratio Glucose POC Glucose 236 H 104 70 L Calculated Osmolality Calcium Magnesium DS: Provider Date of admission: 02/05/17 13:39 Primary care physician: . No PCP Attending physician on admission: Jostin Weller MD Consults: 02/07/17 11:01 Consult to Cardiac Rehabilitation [CONS] Routine Reason for Cardiac Rehabilitation: Risk Factor Modification Discharging clinician: Sarath Mcgarry CNP <Catia Alberto - Last Filed: 02/09/17 08:45> Hospital Course - Hospital Course Hospital Course: Patient seen and examined by me, agree with hospital course as documented. Patient is status post drug eluting stent to his posterior LV branch. He has now reached maximum benefit of inpatient stay and will be discharged home. He will follow-up with Dr. Moraes in 1 week. - Time spent with patient Time with patient DS: Less than 30 minutes Diagnosis - Discharge Diagnosis (1) Syncope Status: Chronic (2) Diabetes mellitus Status: Chronic (3) Hypertension Status: Chronic (4) Coronary artery disease Status: Chronic Discharge Plan - Discharge Data Condition at Discharge: Stable Discharge Diet: heart healthy Activity: increase activity as tolerated Hygiene: no restrictions Weight Bearing at Discharge: weight bear as tolerated Driving: no restrictions Contact your physician if you experience:: fever over 101, Shortness of breath Exam - Constitutional General appearance: normal weight - Head Head exam: Present: normocephalic, atraumatic - Eye Eye exam: Present: EOMI Pupils: Present: LATISHA - ENT ENT exam: Present: normal exam - Neck Neck exam: Present: normal inspection - Respiratory Respiratory exam: Present: clear to auscultation bilaterally - Cardiovascular Cardiovascular exam: Present: regular rate and rhythm - GI/Abdominal GI/Abdominal exam: Present: normal bowel sounds, soft. Absent: tenderness, rebound - Extremities Exam Extremities exam: Present: normal inspection - Back Exam Back exam: Present: normal inspection - Neurological Exam Neurological exam: Present: alert, oriented X3 - Psychiatric Psychiatric exam: Present: normal affect, normal mood - Skin Skin exam: Present: warm, intact
[2017-02-09] MEDS: INSULIN REGULAR 100 UNIT/ML SUBCUT SCH (07:47)
[2017-02-09 07:54] VITALS: BP 126/68
[2017-02-09] MEDS: traMADol 50 MG TABLET PO SCH (08:49)
[2017-02-09] MEDS: LORATADINE 10 MG TABLET PO SCH (08:49)
[2017-02-09] MEDS: CLOPIDOGREL 75 MG TABLET PO SCH (08:49)
[2017-02-09] MEDS: SERTRALINE 50 MG TABLET PO SCH (08:49)
[2017-02-09] MEDS: PANTOPRAZOLE 40 MG TABLET PO SCH (08:49)
[2017-02-09] MEDS: MAGNESIUM CHLORIDE 64 MG TABLET PO SCH (08:49)
[2017-02-09] MEDS: DULoxetine 30 MG CAPSULE PO SCH (08:50)
[2017-02-09] MEDS: ASPIRIN EC 325 MG TABLET PO SCH (08:50)
--- NOTE | 2017-02-09 13:12 | Physician Query Form ---
CLICK EDIT DOCUMENT TO SELECT QUERY ANSWER --> OK --> SIGN Loulou Delgado RN Clinical Aircraft Sheet Metal Mechanic W) [phone] (f) [phone] [email or web address]: Make your selection(s) from the choices in EACH section by typing an "x" and enter comments in the comment section. Please use your independent medical judgment in providing your response. This request does not imply that any particular answer is desired or expected. CLINICAL INDICATORS: (Providers should not edit this section) Pt. had heart catheterization with stent insertion. Heart catheterization report states "Suman Figueroa drug-coated stent" and [facility] record states "Synergy drug-eluting stent". Please clarify the type of stent inserted. Based on the above, could you clarify the appropriate diagnosis, if significant , that supports the above abnormalities and additional evaluation, monitoring, and/or treatment rendered: ( x) Pt. had insertion of drug-eluting stent ( ) Pt. had insertion of drug-coated stent (codes to non drug-eluting stent) ( ) Other, please specify: ( ) Clinically unable to determine COMMENTS: PLEASE ALSO DOCUMENT RESPONSE IN PROGRESS NOTES AND/OR DISCHARGE SUMMARY Use of terms such as suspected, likely, or probable (associated with a specific diagnosis that is being evaluated, monitored, or treated as if it exists) are acceptable and can be restated in the discharge summary if not ruled out. MTDD
== END 2017-02-09 11:22 | disposition home or self-care (01) | DRG 247 ==
LOC: N.ED 10:06 → N.EDINP 13:39 → SUATTDRO 13:39 → N.TELEN 18:43
PROVIDERS: ADMIT Internal Medicine Infectious Disease; ATTEND Internal Medicine
PROC: CLCCHCL (ICD-10-PCS; 2017-02-07 09:15)

== ENCOUNTER 2017-10-31 23:27 | Observation (INO) ==
[2017-11-01] MEDS ORDERED: ONDANSETRON 4 MG/2 ML VIAL IV STA (00:05)
[2017-11-01] MEDS ORDERED: ASPIRIN 325 MG TABLET PO STA (00:05)
[2017-11-01] MEDS ORDERED: NITROGLYCERIN 2% OINT 1 INCH/GM PACK TOP STA (00:05)
[2017-11-01] MEDS ORDERED: ALUM/MAG/SIMETH/LIDO VISC 1:1 30 ML BOTTLE PO STA (00:05)
[2017-11-01] MEDS ORDERED: ALUM/MAG/SIMETH/LIDO VISC 1:1 30 ML BOTTLE PO ONE (00:14)
[2017-11-01] MEDS ORDERED: ONDANSETRON 4 MG/2 ML VIAL ONE (00:14)
[2017-11-01] MEDS ORDERED: ASPIRIN 325 MG TABLET ONE (00:14)
[2017-11-01] MEDS ORDERED: NITROGLYCERIN 2% OINT 1 INCH/GM PACK TOP ONE (00:14)
[2017-11-01 00:52] LABS: Albumin 3.9 G/DL (3.4-5.0); Bilirubin,Total 0.6 MG/DL (0.2-1.0); Calcium 8.8 MG/DL (8.5-10.1); Osmolality,Calculated 285.3 MOS/KG (273-304); Potassium 3.8 MMOL/L (3.5-5.1); Total Protein 7.4 G/DL (6.4-8.3)
[2017-11-01 01:19] LABS: Basophils % 0.4 % (0.0-0.8); Eosinophils # 0.1 10*3/uL (0.0-0.87); Eosinophils % 1.2 % (0.00-10.9); Hemoglobin 12.2 GM/DL (14.0-18.0); Immature Granulocytes % 0.4 %; Immature Granulocytes Absolute 0.04 #; Lymphocytes # 1.7 10*3/uL (1.4-4.0); Lymphocytes % 19.1 % (21.2-54.2); Mean Corpuscular Hemoglobin 31 PG (27-34); Mean Corpuscular Volume 94.1 FL (87-102); Mean Platelet Volume 12.1 FL (9.6-12.0); Monocytes # 0.7 10*3/uL (0.11-0.8); Monocytes % 7.9 % (1.7-12.7); Neutrophils # 6.4 10*3/uL (1.4-7.4); Red Blood Count 3.93 MC/CUMM (3.8-5.5); Red Cell Distribution Width 13.5 % (9.3-17.3)
[2017-11-01 02:08] LABS: Platelet Count 178 T/CUMM (130-400)
[2017-11-01 02:14] LABS: Band Neutrophils 3 % (0-10); Eosinophils 2 % (0-10); Lymphocytes 18 % (20-55); Myelocytes 1 %; Segmented Neutrophils 74 % (50-85)
[2017-11-01 02:15] LABS: Platelet Estimate Adequate; Total Cells Counted 100
[2017-11-01] MEDS ORDERED: ENOXAPARIN 80 MG/0.8 ML SYRINGE SUBCUT SCH (03:16)
[2017-11-01] MEDS ORDERED: DEXTROSE 50% 25 GM/50 ML VIAL IV PRN (03:16)
[2017-11-01] MEDS ORDERED: POTASSIUM CHLORIDE 20 MEQ TABLET PO PRN (03:16)
[2017-11-01] MEDS ORDERED: MORPHINE 2 MG/1 ML SYRINGE IV PRN (03:16)
[2017-11-01] MEDS ORDERED: GLUCAGON 1 MG VIAL IM PRN (03:16)
[2017-11-01] MEDS ORDERED: MAGNESIUM SULF RIDER 2 GM in PREMIX 1 EACH IV PRN ×2 (03:16→15:10)
[2017-11-01] MEDS ORDERED: MAGNESIUM SULF RIDER 4 GM in PREMIX 1 EACH IV PRN (03:16)
[2017-11-01] MEDS ORDERED: ONDANSETRON 4 MG/2 ML VIAL IV PRN (03:16)
[2017-11-01] MEDS: SODIUM CHLORIDE 0.9% 1,000 ML IV SCH ×2 (04:22→18:45)
[2017-11-01] MEDS ORDERED: NITROGLYCERIN SL 0.4 MG TABLET SL ONE (05:19)
[2017-11-01 05:20] LABS: Basophils % 0.2 % (0.0-0.8); Eosinophils % 0.6 % (0.00-10.9); Hematocrit 34.3 VOL% (42.0-52.0); Hemoglobin 11.9 GM/DL (14.0-18.0); Immature Granulocytes % 0.3 %; Immature Granulocytes Absolute 0.02 #; Lymphocytes # 1.8 10*3/uL (1.4-4.0); Lymphocytes % 27.7 % (21.2-54.2); Mean Corpuscular HGB Conc 34.7 GM/DL (32-36); Mean Corpuscular Hemoglobin 32 PG (27-34); Monocytes # 0.5 10*3/uL (0.11-0.8); Monocytes % 7.2 % (1.7-12.7); Neutrophils # 4.3 10*3/uL (1.4-7.4); Platelet Count 195 T/CUMM (130-400); Red Blood Count 3.77 MC/CUMM (3.8-5.5); Red Cell Distribution Width 13.4 % (9.3-17.3); White Blood Count 6.6 T/CUMM (4-12)
[2017-11-01 05:52] LABS: Risk Ratio 3.06; VLDL CHOLESTEROL 7.2 MG/DL
[2017-11-01 05:54] LABS: Albumin 3.5 G/DL (3.4-5.0); Bilirubin,Total 0.9 MG/DL (0.2-1.0); Calcium 8.9 MG/DL (8.5-10.1); Osmolality,Calculated 284.1 MOS/KG (273-304); Potassium 3.8 MMOL/L (3.5-5.1); Total Protein 6.4 G/DL (6.4-8.3)
[2017-11-01] MEDS: NITROGLYCERIN 2% OINT 1 INCH/GM PACK TOP SCH ×2 (06:43→13:51)
[2017-11-01] MEDS: INSULIN REGULAR 100 UNIT/ML SUBCUT SCH ×4 (06:47→20:46)
[2017-11-01] MEDS: PANTOPRAZOLE 40 MG TABLET PO SCH (08:59)
[2017-11-01] MEDS ORDERED: SIMETHICONE CHEW 80 MG TABLET PO PRN (09:04)
[2017-11-01] MEDS ORDERED: ASPIRIN EC 325 MG TABLET PO SCH (09:30)
[2017-11-01] MEDS: CLOPIDOGREL 75 MG TABLET PO SCH (10:46)
[2017-11-01] MEDS: MAGNESIUM CHLORIDE 64 MG TABLET PO SCH (10:46)
[2017-11-01] MEDS: LORATADINE 10 MG TABLET PO SCH (10:46)
[2017-11-01] MEDS: SERTRALINE 50 MG TABLET PO SCH (10:46)
[2017-11-01 11:00] LABS: Apearance,Urine CLEAR (Clear); Bacteria,Urine Occasional /HPF (Few); Bilirubin,Urine Negative (Negative); Blood, Urine Negative (Negative); Glucose,Urine (UA) Negative (Negative); Ketones,Urine Negative (Negative); Mucus,Urine Few /LPF (Occasional); Nitrite,Urine Negative (Negative); Protein,Urine Negative; RBC,Urine 1 /HPF (0-4); Urine Color Yellow (Yellow); WBC,Urine 1 /HPF (0-6)
[2017-11-01] MEDS ORDERED: diphenhydrAMINE CAP 25 MG CAPSULE PO ONE (12:19)
[2017-11-01] MEDS ORDERED: DIAZEPAM 5 MG TABLET PO ONE (12:19)
[2017-11-01] MEDS ORDERED: POTASSIUM CHLORIDE RIDER 10 MEQ in PREMIX 1 EACH IV PRN (15:10)
[2017-11-01] MEDS ORDERED: LIDOCAINE 1% 20 ML VIAL ONE (17:05)
[2017-11-01] MEDS ORDERED: HEPARIN/NACL 0.9% 2 UNITS/ML 2,000 ML IV ONE (17:05)
[2017-11-01] MEDS ORDERED: MIDAZOLAM 2 MG/2 ML VIAL ONE (18:18)
[2017-11-01] MEDS ORDERED: HYDROmorphone 2 MG/1 ML VIAL ONE (18:19)
[2017-11-01] MEDS ORDERED: ACETAMINOPHEN 325 MG TABLET PO PRN (19:04)
[2017-11-01] MEDS ORDERED: ZALEPLON 5 MG CAPSULE PO PRN (19:04)
[2017-11-01] MEDS: CARVEDILOL 3.125 MG TABLET PO SCH (20:43)
[2017-11-01] MEDS ORDERED: ROSUVASTATIN 10 MG TABLET PO SCH (21:00)
[2017-11-02] MEDS: SODIUM CHLORIDE 0.9% 1,000 ML IV SCH (02:10)
[2017-11-02 04:52] LABS: Basophils % 0.4 % (0.0-0.8); Eosinophils # 0.2 10*3/uL (0.0-0.87); Eosinophils % 3.1 % (0.00-10.9); Hemoglobin 11.1 GM/DL (14.0-18.0); Immature Granulocytes % 0.2 %; Immature Granulocytes Absolute 0.01 #; Lymphocytes # 1.4 10*3/uL (1.4-4.0); Lymphocytes % 28.9 % (21.2-54.2); Mean Corpuscular HGB Conc 33.6 GM/DL (32-36); Mean Corpuscular Hemoglobin 31 PG (27-34); Mean Corpuscular Volume 92.2 FL (87-102); Mean Platelet Volume 11.5 FL (9.6-12.0); Monocytes # 0.4 10*3/uL (0.11-0.8); Monocytes % 8.9 % (1.7-12.7); Neutrophils # 2.8 10*3/uL (1.4-7.4); Neutrophils % 58.5 % (38.7-73.9); Platelet Count 104 T/CUMM (130-400); Red Blood Count 3.58 MC/CUMM (3.8-5.5); Red Cell Distribution Width 13.4 % (9.3-17.3); White Blood Count 4.8 T/CUMM (4-12)
[2017-11-02 05:32] LABS: Calcium 8.1 MG/DL (8.5-10.1); Osmolality,Calculated 283.1 MOS/KG (273-304); Potassium 4.3 MMOL/L (3.5-5.1)
[2017-11-02] MEDS: CLOPIDOGREL 75 MG TABLET PO SCH (09:45)
[2017-11-02] MEDS: PANTOPRAZOLE 40 MG TABLET PO SCH (09:45)
[2017-11-02] MEDS: INSULIN REGULAR 100 UNIT/ML SUBCUT SCH (09:45)
[2017-11-02] MEDS: LORATADINE 10 MG TABLET PO SCH (09:45)
[2017-11-02] MEDS: CARVEDILOL 3.125 MG TABLET PO SCH (09:45)
[2017-11-02] MEDS: MAGNESIUM CHLORIDE 64 MG TABLET PO SCH (09:45)
[2017-11-02] MEDS: SERTRALINE 50 MG TABLET PO SCH (09:46)
[2017-11-02 12:24] VITALS: BP 130/73
== END 2017-11-02 13:26 | disposition home or self-care (01) ==
LOC: N.ED 23:27 → INTOOBSV 11-01 01:22 → N.EDINP 11-01 01:22 → N.TELEN 11-01 01:52
PROVIDERS: ADMIT Internal Medicine Cardiovascular Disease; ATTEND Internal Medicine Cardiovascular Disease
PROC: CLCCHCL (ICD-10-PCS; 2017-11-01 14:45)

== ENCOUNTER 2018-11-21 09:21 | Observation (INO) ==
[2018-11-21] MEDS ORDERED: ENOXAPARIN 100 MG/ML SYRINGE SUBCUT STA (09:41)
[2018-11-21] MEDS ORDERED: ASPIRIN 325 MG TABLET PO STA (09:41)
[2018-11-21 10:06] LABS: Basophils % 0.4 % (0.0-0.8); Eosinophils # 0.2 10*3/uL (0.0-0.87); Eosinophils % 3.6 % (0.00-10.9); Hematocrit 37.3 VOL% (42.0-52.0); Hemoglobin 12.2 GM/DL (14.0-18.0); Immature Granulocytes % 0.2 %; Immature Granulocytes Absolute 0.01 #; Lymphocytes # 1.7 10*3/uL (1.4-4.0); Lymphocytes % 38.7 % (21.2-54.2); Mean Corpuscular HGB Conc 32.7 GM/DL (32-36); Mean Corpuscular Hemoglobin 31 PG (27-34); Mean Corpuscular Volume 93.7 FL (87-102); Mean Platelet Volume 10.1 FL (9.6-12.0); Monocytes # 0.4 10*3/uL (0.11-0.8); Monocytes % 8.7 % (1.7-12.7); Neutrophils # 2.2 10*3/uL (1.4-7.4); Neutrophils % 48.4 % (38.7-73.9); Platelet Count 201 T/CUMM (130-400); Red Blood Count 3.98 MC/CUMM (3.8-5.5); Red Cell Distribution Width 13.4 % (9.3-17.3); White Blood Count 4.5 T/CUMM (4-12)
[2018-11-21 10:34] LABS: Albumin 3.7 G/DL (3.4-5.0); Bilirubin,Total 0.4 MG/DL (0.2-1.0); Calcium 8.8 MG/DL (8.5-10.1); Osmolality,Calculated 281.3 MOS/KG (273-304); Total Protein 7.4 G/DL (6.4-8.3)
[2018-11-21] MEDS ORDERED: POTASSIUM CHLORIDE 20 MEQ TABLET PO PRN (12:44)
[2018-11-21] MEDS ORDERED: MORPHINE 4 MG/1 ML VIAL IV PRN (12:44)
[2018-11-21] MEDS ORDERED: INSULIN LISPRO 100 UNIT/ML SUBCUT ONE (12:44)
[2018-11-21] MEDS ORDERED: ONDANSETRON 4 MG/2 ML VIAL IV PRN (12:44)
[2018-11-21] MEDS ORDERED: BISACODYL 5 MG TABLET PO PRN (12:44)
[2018-11-21] MEDS ORDERED: ZALEPLON 5 MG CAPSULE PO PRN (12:44)
[2018-11-21] MEDS ORDERED: ACETAMINOPHEN 325 MG TABLET PO PRN (12:44)
[2018-11-21] MEDS ORDERED: ALUM/MAG/SIMETH/LIDO VISC 1:1 30 ML BOTTLE PO PRN (12:44)
[2018-11-21] MEDS ORDERED: MAGNESIUM HYDROXIDE SUSP 30 ML UDCUP PO PRN (12:44)
[2018-11-21] MEDS ORDERED: MAGNESIUM SULF RIDER 2 GM in PREMIX 1 EACH IV PRN (12:44)
[2018-11-21] MEDS ORDERED: DEXTROSE 50% 25 GM/50 ML VIAL IV PRN (12:50)
[2018-11-21] MEDS ORDERED: GLUCAGON 1 MG VIAL IM PRN (12:50)
[2018-11-21 14:42] LABS: Risk Ratio 4.74
[2018-11-21] MEDS ORDERED: KETOROLAC 30 MG/1 ML VIAL IV ONE (16:05)
[2018-11-21] MEDS: NITROGLYCERIN 2% OINT 1 INCH/GM PACK TOP SCH ×2 (17:43→23:16)
[2018-11-21] MEDS: PANTOPRAZOLE 40 MG TABLET PO SCH (17:43)
[2018-11-21] MEDS ORDERED: traZODone 50 MG TABLET PO SCH (21:00)
[2018-11-21] MEDS: GABAPENTIN 100 MG CAPSULE PO SCH (21:09)
[2018-11-21] MEDS: CARVEDILOL 3.125 MG TABLET PO SCH (21:09)
[2018-11-21] MEDS: ACETAMINOPHEN 325 MG TABLET PO SCH (21:13)
[2018-11-21] MEDS: ENOXAPARIN 80 MG/0.8 ML SYRINGE SUBCUT SCH (21:14)
[2018-11-22] MEDS: NITROGLYCERIN 2% OINT 1 INCH/GM PACK TOP SCH (05:37)
[2018-11-22 05:41] LABS: Albumin 3.2 G/DL (3.4-5.0); Bilirubin,Total 0.7 MG/DL (0.2-1.0); Calcium 8.3 MG/DL (8.5-10.1); Osmolality,Calculated 282.4 MOS/KG (273-304); Potassium 3.9 MMOL/L (3.5-5.1); Total Protein 6.5 G/DL (6.4-8.3)
[2018-11-22 05:46] LABS: Troponin I 0.079 NG/ML (0.00-0.045)
[2018-11-22] MEDS: GABAPENTIN 100 MG CAPSULE PO SCH (08:57)
[2018-11-22] MEDS: CARVEDILOL 3.125 MG TABLET PO SCH (08:57)
[2018-11-22] MEDS: PANTOPRAZOLE 40 MG TABLET PO SCH (08:57)
[2018-11-22] MEDS: ACETAMINOPHEN 325 MG TABLET PO SCH (08:57)
[2018-11-22] MEDS: ENOXAPARIN 80 MG/0.8 ML SYRINGE SUBCUT SCH (08:57)
[2018-11-22] MEDS ORDERED: CETIRIZINE 10 MG TABLET PO SCH (09:00)
[2018-11-22] MEDS ORDERED: ASPIRIN EC 81 MG TABLET PO SCH (09:00)
[2018-11-22] MEDS ORDERED: CLOPIDOGREL 75 MG TABLET PO SCH (09:00)
[2018-11-22] MEDS ORDERED: ASPIRIN EC 325 MG TABLET PO SCH (09:00)
[2018-11-22 12:06] VITALS: BP 125/81
[2018-11-22] MEDS ORDERED: ROSUVASTATIN 20 MG TABLET PO SCH (21:00)
== END 2018-11-22 14:39 | disposition home or self-care (01) ==
LOC: N.ED 09:21 → N.EDINP 09:21 → N.TELES 17:09
PROVIDERS: ADMIT Internal Medicine; ATTEND Internal Medicine